=== PATIENT | male | born 1930 | race Two or more races ===

== ENCOUNTER → 2016-12-20 | Outpatient (CLI) | payer OTHER ==
[~2016-12-20] MED LIST: ACTOS PO; AVALIDE 150-12.1 TAB; AVALIDE 150-12.1 TAB PO; AVAPRO150 MG PO; BENICAR20 MG PO; COQ-10100 MG PO; LIPITOR PO; MULTI-VITAMIN1 EAC1 PO; PANTOPRAZOLE SO40 MG PO; PEPCID AC20 MG PO; PLAVIX PO; TRADJENTA5 MG PO; ZYLOPRIM PO
--- NOTE | ~2016-12-20 | US77 ---
[facility] A Service of [facility] RADIOLOGY TEXT RESULTS PATIENT: GISELL RESENDEZ JR LOCATION: [facility] : 34 UNIT #: [id number] AGE: [address]: Abby Adhikari MD SEX: M ORDER DR: [id number] [facility] [address] [place], [place] [address] [id number] O MR#: [id number] Acc #: [id number] NAME: GISELL RESENDEZ : 1930 SEX: M STUDY DATE/TIME: 12/20/2016 12:26 UNIT: CGUS ROOM: STUDY DESCRIPTION: US Kidney Bilateral Complete Attending Physician: Dalia Adhikari M.D. Referring Physician: Dalia Adhikari M.D. Ordering Physician: Dalia Adhikari M.D. Primary Care Physician: Ramses Mabry M.D. MEDICAL IMAGING REPORT This report is preliminary unless electronic signature is present EXAM Renal ultrasound INDICATION Chronic kidney disease stage 3. PROCEDURE Meraz-scale and Doppler imaging of the kidneys and bladder. COMPARISON None. FINDINGS Right kidney measures 10.7 cm. Cortical thickness 1.3 cm slightly increased echotexture. Left kidney measures 9.8 cm. Cortical thickness 1.5 cm. Slightly increased echotexture. No hydronephrosis. Unremarkable bladder. IMPRESSION Both kidneys show slightly increased echotexture most in keeping with changes of chronic renal disease. There is no hydronephrosis. Dictated by... Joo Briscoe M.D. THIS IS AN ELECTRONICALLY VERIFIED REPORT Joo Briscoe M.D. at 12/21/2016 6:57 AM EED/lucho TD: 12/20/2016 15:58 JOB #: [id number] [facility] A Service of [facility] RADIOLOGY TEXT RESULTS PATIENT: GISELL RESENDEZ JR LOCATION: [facility] : 34 UNIT #: [id number] AGE: [address]: Abby Adhikari MD SEX: M ORDER DR: MEDICAL IMAGING REPORT COPY
== END | disposition home or self-care (01) ==
LOC: CGUS 11:59
DX: N18.3 Chronic kidney disease, stage 3 (moderate) (principal)
CPT/HCPCS: 76770